=== PATIENT | male | born 1970 | race Two or more races ===

== ENCOUNTER 2020-11-20 18:14 | Inpatient (IN) | payer OTHER ==
[2020-11-20] MEDS ORDERED: ACETAMINOPHEN 325 MG TABLET (FP) PO PRN ×2 (21:47)
[2020-11-20] MEDS ORDERED: MENTHOL/PHENOL 1 EACH UD MM PRN (21:47)
[2020-11-20] MEDS ORDERED: MAG HYDROX/AL HYDROX/SIMETH 30 ML UNIT-DOSE CUP PO PRN (21:47)
[2020-11-20] MEDS ORDERED: MAGNESIUM CITRATE 300 ML BOTTLE PO PRN (21:47)
[2020-11-20] MEDS ORDERED: diazePAM 5 MG TABLET PO ONE (21:47)
[2020-11-20] MEDS ORDERED: cloNIDine HCL 0.1 MG TABLET PO PRN (21:47)
[2020-11-20] MEDS ORDERED: methaDONE HCL 10 MG TABLET (FOR DETOX USE ONLY) PO ONE (21:47)
[2020-11-20] MEDS ORDERED: NICOTINE POLACRILEX 2 MG GUM BUC PRN (21:47)
[2020-11-20] MEDS ORDERED: NICOTINE 10 MG CARTRIDGE (INHALER) IH PRN (21:47)
[2020-11-20] MEDS ORDERED: clonazePAM 0.5 MG ODT TABLETS SL PRN (21:47)
[2020-11-20] MEDS ORDERED: ONDANSETRON *ODT* 4 MG TABLET SL PRN (21:47)
[2020-11-20] MEDS ORDERED: IBUPROFEN 400 MG TABLET (FP) PO PRN (21:47)
[2020-11-20] MEDS ORDERED: MAGNESIUM HYDROX 2400MG/30ML ORAL SUSPENSION 30 ML CUP PO PRN (21:47)
[2020-11-20] MEDS ORDERED: BISMUTH SUBSALICYLATE 524 MG/30 ML PO PRN (21:47)
[2020-11-21] MEDS ORDERED: hydrOXYzine PAMOATE 25 MG CAPSULE (FP) PO ONE ×2 (00:58→06:03)
[2020-11-21 01:08] VITALS: BMI 23.0
[2020-11-21] MEDS: diazePAM 5 MG TABLET PO SCH ×5 (03:01→22:14)
[2020-11-21] MEDS: hydrOXYzine PAMOATE 25 MG CAPSULE (FP) PO SCH ×6 (03:01→22:14)
[2020-11-21] MEDS: PRENATAL VITAMINS W/ FOLIC ACID TABLET (FP) PO SCH ×2 (03:01→10:29)
[2020-11-21] MEDS: MELATONIN 5 MG TABLETS PO SCH ×2 (03:01→22:14)
[2020-11-21] MEDS: THIAMINE HCL 100 MG TABLET (FP) PO SCH ×2 (03:01→22:14)
[2020-11-21] MEDS ORDERED: diazePAM 5 MG TABLET ONE (06:03)
[2020-11-21] MEDS: NICOTINE 14 MG/24 HOURS TOPICAL PATCH TD SCH (10:29)
[2020-11-21] MEDS: METHOCARBAMOL 500 MG TABLET PO PRN (10:29)
[2020-11-21 11:08] LABS: HEMATOCRIT 36.9 % (35.4-49); HEMOGLOBIN 12.4 GM/dL (11.7-16.9); MCH 28.3 pg (25.7-33.7); MCHC 33.5 g/dl (32.0-35.9); MEAN CELL VOLUME 84.5 fl (80-96); MEAN PLT VOLUME 8.9 fl (7.5-11.1); PLATELET COUNT 192 10^3/uL (134-434); RBC 4.36 M/mm3 (4.00-5.60); RDW 17.5 % (11.9-15.9); WHITE BLOOD COUNT 3.8 K/mm3 (4.0-10.0)
[2020-11-21 11:20] LABS: ALBUMIN 3.3 g/dl (3.4-5.0); BLOOD UREA NITROGEN 10.8 mg/dL (7-18); CALCIUM 8.9 mg/dL (8.5-10.1)
[2020-11-21 11:23] LABS: CREATININE 0.7 mg/dL (0.55-1.3)
[2020-11-21 11:24] LABS: BILIRUBIN,TOTAL 0.6 mg/dL (0.2-1)
[2020-11-21 11:25] LABS: TOT PROT 6.9 g/dl (6.4-8.2)
[2020-11-22] MEDS: diazePAM 5 MG TABLET PO SCH ×3 (05:52→22:19)
[2020-11-22] MEDS: hydrOXYzine PAMOATE 25 MG CAPSULE (FP) PO SCH ×5 (05:52→22:18)
[2020-11-22] MEDS ORDERED: methaDONE HCL 10 MG TABLET (FOR DETOX USE ONLY) ONE (09:20)
[2020-11-22] MEDS ORDERED: methaDONE HCL 10 MG TABLET (FOR DETOX USE ONLY) PO ONE ×2 (10:00)
[2020-11-22] MEDS: PRENATAL VITAMINS W/ FOLIC ACID TABLET (FP) PO SCH (10:05)
[2020-11-22] MEDS: NICOTINE 14 MG/24 HOURS TOPICAL PATCH TD SCH (10:08)
[2020-11-22] MEDS ORDERED: ONDANSETRON *ODT* 4 MG TABLET SL ONE (10:49)
[2020-11-22] MEDS: METHOCARBAMOL 500 MG TABLET PO PRN (17:46)
[2020-11-22] MEDS: diazePAM 5 MG TABLET PO PRN (19:31)
[2020-11-22] MEDS: MELATONIN 5 MG TABLETS PO SCH (22:18)
[2020-11-22] MEDS: THIAMINE HCL 100 MG TABLET (FP) PO SCH (22:18)
[2020-11-23] MEDS: hydrOXYzine PAMOATE 25 MG CAPSULE (FP) PO SCH ×2 (05:51→09:04)
[2020-11-23] MEDS ORDERED: diazePAM 5 MG TABLET PO SCH (06:00)
[2020-11-23] MEDS: METHOCARBAMOL 500 MG TABLET PO PRN (07:31)
[2020-11-23] MEDS: diazePAM 5 MG TABLET PO PRN ×2 (07:31→10:31)
[2020-11-23] MEDS: NICOTINE 14 MG/24 HOURS TOPICAL PATCH TD SCH (09:03)
[2020-11-23] MEDS: PRENATAL VITAMINS W/ FOLIC ACID TABLET (FP) PO SCH (09:03)
[2020-11-23 09:10] VITALS: BP 126/59; PULSE 53; TEMP 98.2
[2020-11-23] MEDS ORDERED: methaDONE HCL 10 MG TABLET (FOR DETOX USE ONLY) PO ONE (10:00)
[2020-11-24] MEDS ORDERED: diazePAM 5 MG TABLET PO ONE (06:00)
[2020-11-24] MEDS ORDERED: methaDONE HCL 10 MG TABLET (FOR DETOX USE ONLY) PO ONE (10:00)
[2020-11-25] MEDS ORDERED: methaDONE HCL 10 MG TABLET (FOR DETOX USE ONLY) PO ONE (10:00)
== END 2020-11-23 11:01 | disposition left against medical advice (07) | DRG 770 ==
LOC: YASAS 18:14 → Y6N 11-21 08:50
PROVIDERS: ADMIT Allergy & Immunology; ATTEND Allergy & Immunology
PROC: HZ2ZZZZ Detoxification Services for Substance Abuse Treatment (ICD-10-PCS; principal; 2020-11-21)
DX: F11.23 Opioid dependence with withdrawal (principal); F10.230 Alcohol dependence with withdrawal, uncomplicated; F14.20 Cocaine dependence, uncomplicated; F12.20 Cannabis dependence, uncomplicated; F17.210 Nicotine dependence, cigarettes, uncomplicated; I10 Essential (primary) hypertension; B19.20 Unspecified viral hepatitis C without hepatic coma; Z59.0 Homelessness
CPT/HCPCS: 36415; 80053; 85027; 86780; C9803; J0735; Q0162; U0003; U0005